=== PATIENT | female | born 1980 | race Caucasian/White ===

== ENCOUNTER → 2020-11-15 12:01 | Outpatient (BNVA) | payer OTHER, SELFPAY | PROVIDERS: Visit Provider Advanced Practice Midwife ==

== ENCOUNTER 2021-03-17 09:29 | Outpatient (REF) | payer OTHER, SELFPAY ==
[2021-03-17 12:01] LABS: Hematocrit 38.9 % (37-47); Hemoglobin 13.1 g/dl (12.0-16.0); Mean Corpuscular HGB Conc 33.7 g/dl (31.0-35.0); Mean Corpuscular Hemoglobin 34.3 pg (27.0-33.0); Mean Corpuscular Volume 101.8 fL (80-98); Mean Platelet Volume 10.7 fL (9.4-12.3); Platelet Count 265 X10*3/uL (160-400); Red Blood Count 3.82 X10*6/uL (4.20-5.50); Red Cell Distribution Width 11.4 % (11.0-16.0); White Blood Count 9.4 X10*3/uL (4.8-10.8)
[2021-03-17 12:02] LABS: Glucose Urine UA NEG (NEG); Leukocyte Esterase Urine NEG (NEG); Nitrite Urine NEG (NEG); Specific Gravity - Urine <= 1.005 (1.005-1.025); Urine Blood TRACE (NEG); Urine Ketones NEG (NEG); Urine Protein NEG (NEG-TRACE)
[2021-03-17 12:12] LABS: Alanine Aminotransferase 8 U/L (0-31); Albumin Level 4.2 g/dL (3.5-5.0); Alkaline Phosphatase 51 U/L (39-117); Anion Gap 11 (12-20); Aspartate Amino Transferase 15 U/L (5-31); Bilirubin Total 0.5 mg/dL (0.0-1.0); Blood Urea Nitrogen 18 mg/dL (9-16); Calcium 9.1 mg/dL (8.4-10.2); Carbon Dioxide 27 mmol/L (22-29); Chloride 103 mmol/L (96-108); Cholesterol 190 mg/dL; Estimated Glomerular Filt Rate > 60; Glucose Fasting 92 mg/dL (60-99); HDL Cholesterol 63 mg/dL; Iron 112 mcg/dL (30-160); LDL Cholesterol Calculated 111 mg/dl; Percent Iron Saturation 36 % (15-50); Sodium 137 mmol/L (135-145); Total Iron Binding Capacity 309 mcg/dL (228-428); Total Protein 6.9 g/dL (6.5-8.0); Triglycerides 81 mg/dL; Unsaturated Iron Binding 197 ug/dL
[2021-03-17 12:23] LABS: TSH reflex Free T4 0.42 uIU/mL (0.32-4.0)
[2021-03-17 12:42] LABS: Appearance Urine CLEAR; Color Urine YELLOW
[2021-03-17 12:53] LABS: RBC Urine 0-2 /HPF (0); Squamous Epithelial Cell Urine 2+ /LPF; WBC Urine 0-2 /HPF (0-4)
== END 2021-03-17 09:30 | disposition home or self-care (01) ==
LOC: HO.HMGCLDS 09:29
PROVIDERS: PCP Physician Assistant; Visit Provider Physician Assistant
DX: R53.83 Other fatigue (principal); R30.0 Dysuria; D53.9 Nutritional anemia, unspecified; D50.9 Iron deficiency anemia, unspecified; I10 Essential (primary) hypertension; Z13.1 Encounter for screening for diabetes mellitus; Z13.220 Encounter for screening for lipoid disorders; Z13.29 Encounter for screening for other suspected endocrine disorder
CPT/HCPCS: 36415; 80053; 80061; 81001; 81003; 83540; 84443; 85027

== ENCOUNTER 2021-03-23 09:45 | Outpatient (REF) | payer OTHER, SELFPAY ==
[2021-03-23 10:54] LABS: Glucose Urine UA NEG (NEG); Leukocyte Esterase Urine NEG (NEG); Nitrite Urine NEG (NEG); PH 6.5 (5.0-8.0); Specific Gravity - Urine 1.015 (1.005-1.025); Urine Blood NEG (NEG); Urine Ketones NEG (NEG); Urine Protein NEG (NEG-TRACE)
[2021-03-23 10:56] LABS: Appearance Urine CLEAR; Color Urine YELLOW
[2021-03-23 11:44] LABS: Folate 11.9 ng/mL (> or = 4.0); Vitamin B12 323 pg/mL (200-900)
== END 2021-03-23 09:46 | disposition home or self-care (01) ==
LOC: HO.LAB 09:45
PROVIDERS: PCP Physician Assistant; Visit Provider Physician Assistant
DX: Z13.220 Encounter for screening for lipoid disorders (principal); Z13.29 Encounter for screening for other suspected endocrine disorder; R30.0 Dysuria; R53.83 Other fatigue; D53.9 Nutritional anemia, unspecified
CPT/HCPCS: 36415; 81003; 82607; 82746

== ENCOUNTER 2022-05-10 08:43 | Outpatient (REF) | payer OTHER, SELFPAY ==
[2022-05-10 11:34] LABS: Syphilis Screen Nonreactive (Nonreactive)
[2022-05-10 11:51] LABS: HCG Quantitative 145 mIU/mL
[2022-05-10 12:18] LABS: HBc Num1 0.15 S/CO (0.00-0.79); HIV AB/AG Nonreactive (Nonreactive); HIV Num 1 0.06 S/CO (0.00-0.99); Hepatitis B Core Antibody Nonreactive (Nonreactive); ~HepC Num1 0.09 S/CO (0.00-0.79); ~Hepatitis C Antibody Nonreactive (Nonreactive)
[2022-05-11 09:10] LABS: CT PCR NOT DETECTED (Not Detect.); NG PCR NOT DETECTED (Not Detect.)
[2022-05-11 10:48] LABS: BV Int Neg Control Negative (Negative); BV Int Pos Control Positive (Positive)
== END 2022-05-10 08:44 | disposition home or self-care (01) ==
LOC: HO.LAB 08:43
PROVIDERS: PCP Physician Assistant; Visit Provider Advanced Practice Midwife
DX: Z32.01 Encounter for pregnancy test, result positive (principal); O20.0 Threatened abortion; Z20.2 Contact with and (suspected) exposure to infections with a predominantly sexual mode of transmission; F41.9 Anxiety disorder, unspecified
CPT/HCPCS: 36415; 81025; 84702; 86704; 86780; 86803; 87389; 87480; 87491; 87510; 87591; 87660; 99212

== ENCOUNTER 2022-05-12 14:43 | Outpatient (REF) | payer OTHER, SELFPAY ==
--- NOTE | ~2022-05-12 | US_ITS ---
EXAMINATION: US OBSTETRICAL ULTRASOUND CLINICAL INFORMATION: Hemorrhage in early . COMPARISON: None. TECHNIQUE: Transabdominal and endovaginal sonographic evaluation of the pelvis. FINDINGS: The uterus measures 6.6 x 3.2 x 4.9 cm. The endometrium measures 0.4 cm in thickness. There is no intrauterine gestational sac. There is somewhat abnormal appearance of the cervix with fluid noted at the cervical canal. Trace pelvic free fluid. MATERNAL ADNEXA: The right maternal ovary measures 3.6 x 2.3 x 2.1 cm. The left maternal ovary measures 2.5 x 2.8 x 1.6 cm. There is no significant maternal adnexal mass. Trace free fluid in the left adnexa. US/US OB <= 14 weeks fetus IMPRESSION: There is no intrauterine gestational sac. Small amount of fluid/debris noted in the cervical canal. No ectopic visualized.
[2022-05-12 16:01] LABS: HCG Quantitative 128 mIU/mL
== END 2022-05-12 14:44 | disposition home or self-care (01) ==
LOC: HO.US 14:43
PROVIDERS: PCP Physician Assistant; Visit Provider Advanced Practice Midwife
DX: O20.9 Hemorrhage in early pregnancy, unspecified (principal)
CPT/HCPCS: 36415; 76801; 84702

== ENCOUNTER 2022-05-14 20:27 | Emergency (ER) | payer OTHER, SELFPAY | END 2022-05-14 22:29 | disposition left against medical advice (07) | PROVIDERS: Emergency Provider Emergency Medicine; PCP Obstetrics & Gynecology | DX: R79.89 Other specified abnormal findings of blood chemistry (principal) ==

== ENCOUNTER 2022-05-15 14:41 | Outpatient (REF) | payer OTHER, SELFPAY ==
[2022-05-15 16:36] LABS: HCG Quantitative 119 mIU/mL
== END 2022-05-15 14:42 | disposition home or self-care (01) ==
LOC: HO.LAB 14:41
PROVIDERS: PCP Physician Assistant; Visit Provider Advanced Practice Midwife
DX: O20.0 Threatened abortion (principal)
CPT/HCPCS: 36415; 84702

== ENCOUNTER → 2022-05-16 11:26 | Outpatient (BNVA) | payer OTHER, SELFPAY | PROVIDERS: PCP Physician Assistant; Visit Provider Advanced Practice Midwife | DX: O09.529 Supervision of elderly multigravida, unspecified trimester (principal); O20.0 Threatened abortion; O28.8 Other abnormal findings on antenatal screening of mother; O99.340 Other mental disorders complicating pregnancy, unspecified trimester; F32.A Depression, unspecified; Z3A.00 Weeks of gestation of pregnancy not specified; Z71.2 Person consulting for explanation of examination or test findings | CPT/HCPCS: 99212 ==

== ENCOUNTER 2022-05-17 13:18 | Outpatient (REF) | payer OTHER, SELFPAY ==
[2022-05-17 15:04] LABS: HCG Quantitative 108 mIU/mL
== END 2022-05-17 13:19 | disposition home or self-care (01) ==
LOC: HO.LAB 13:18
PROVIDERS: PCP Physician Assistant; Visit Provider Advanced Practice Midwife
DX: O20.0 Threatened abortion (principal)
CPT/HCPCS: 36415; 84702

== ENCOUNTER 2022-05-29 12:22 | Outpatient (REF) | payer OTHER, SELFPAY ==
[2022-05-29 13:20] LABS: HCG Quantitative 34 mIU/mL
== END 2022-05-29 12:23 | disposition home or self-care (01) ==
LOC: HO.LAB 12:22
PROVIDERS: PCP Physician Assistant; Visit Provider Advanced Practice Midwife
DX: O03.9 Complete or unspecified spontaneous abortion without complication (principal)
CPT/HCPCS: 36415; 84702

== ENCOUNTER 2022-06-20 11:10 | Outpatient (REF) | payer OTHER, SELFPAY ==
[2022-06-20 12:37] LABS: HCG Quantitative < 2 mIU/mL
== END 2022-06-20 11:11 | disposition home or self-care (01) ==
LOC: HO.LAB 11:10
PROVIDERS: PCP Physician Assistant; Visit Provider Advanced Practice Midwife
DX: O03.9 Complete or unspecified spontaneous abortion without complication (principal)
CPT/HCPCS: 36415; 84702

== ENCOUNTER 2022-11-03 14:38 | Outpatient (REF) | payer OTHER, SELFPAY ==
--- NOTE | ~2022-11-03 | XR_ITS ---
EXAMINATION: XR BILATERAL KNEES CLINICAL INFORMATION: Reason for Exam M25.561 - Pain in right knee COMPARISON: None TECHNIQUE: 4 views of the bilateral knees FINDINGS: RIGHT KNEE: No acute fracture or dislocation. Mild degenerative changes of the knee with small medial compartment osteophytes and spurring of the tibial spines. No joint effusion. Soft tissues are unremarkable. LEFT KNEE: No acute fracture or dislocation. Mild degenerative changes of the knee with spurring of the tibial spines and small medial compartment osteophytes. No joint effusion. Soft tissues are unremarkable. XR/XR knee LT 3V IMPRESSION: * No acute osseous abnormality. * Mild degenerative changes of the knees.
--- NOTE | ~2022-11-03 | XR_ITS ---
EXAMINATION: XR BILATERAL KNEES CLINICAL INFORMATION: Reason for Exam M25.561 - Pain in right knee COMPARISON: None TECHNIQUE: 4 views of the bilateral knees FINDINGS: RIGHT KNEE: No acute fracture or dislocation. Mild degenerative changes of the knee with small medial compartment osteophytes and spurring of the tibial spines. No joint effusion. Soft tissues are unremarkable. LEFT KNEE: No acute fracture or dislocation. Mild degenerative changes of the knee with spurring of the tibial spines and small medial compartment osteophytes. No joint effusion. Soft tissues are unremarkable. XR/XR knee RT 3V IMPRESSION: * No acute osseous abnormality. * Mild degenerative changes of the knees.
[2022-11-03 15:05] LABS: Hematocrit 38.1 % (37.0-47.0); Mean Corpuscular HGB Conc 34.1 g/dl (31.0-35.0); Mean Corpuscular Hemoglobin 33.3 pg (27.0-33.0); Mean Corpuscular Volume 97.7 fL (80.0-98.0); Mean Platelet Volume 9.3 fL (9.4-12.3); Platelet Count 228 X10*3/uL (160-400); Red Cell Distribution Width 11.8 % (11.0-16.0); White Blood Count 6.3 X10*3/uL (4.8-10.8)
[2022-11-03 15:33] LABS: Alanine Aminotransferase 10 U/L (0-31); Albumin Level 3.9 g/dL (3.5-5.0); Alkaline Phosphatase 68 U/L (39-117); Anion Gap 14 (12-20); Aspartate Amino Transferase 17 U/L (5-31); Bilirubin Total 0.3 mg/dL (0.0-1.0); Blood Urea Nitrogen 12 mg/dL (9-16); Calcium 8.8 mg/dL (8.4-10.2); Carbon Dioxide 24 mmol/L (22-29); Chloride 105 mmol/L (96-108); Estimated Glomerular Filt Rate > 60; Glucose Random 96 mg/dL (60-115); Potassium 4.1 mmol/L (3.3-5.1); Sodium 139 mmol/L (135-145); Total Protein 6.6 g/dL (6.5-8.0)
[2022-11-03 15:49] LABS: TSH reflex Free T4 0.27 uIU/mL (0.32-4.0); Vitamin D 25-OH Total 6.7 ng/mL (>30)
[2022-11-03 16:34] LABS: Free T4 (Free Thyroxine) 1.13 ng/dL (0.71-1.85)
== END 2022-11-03 14:39 | disposition home or self-care (01) ==
LOC: HO.LAB 14:38
PROVIDERS: PCP Physician Assistant; Visit Provider Nurse Practitioner Family
DX: F41.9 Anxiety disorder, unspecified (principal); M25.561 Pain in right knee; M25.562 Pain in left knee
CPT/HCPCS: 36415; 73562; 80053; 82306; 84439; 84443; 85027